=== PATIENT | female | born 1950 | race Caucasian/White ===

== ENCOUNTER 2020-07-22 18:15 | Inpatient (IN) ==
[2020-07-22] MEDS ORDERED: Isovue-370 500 ML BOTTLE IVP ONE (18:29)
[2020-07-22 18:56] LABS: Hematocrit 40.2 % (35.3-44.9); Hemoglobin 12.9 g/dL (11.5-15.4); Mean Corpuscular HGB Conc 32.1 g/dL (31.6-35.5); Mean Corpuscular Hemoglobin 29.1 pg (28.0-33.3); Mean Corpuscular Volume 90.7 fL (83.0-100.0); Mean Platelet Volume 10.3 fL (9.4-12.4); Platelet Count 252 K/mcL (140-400); Red Blood Count 4.43 M/mcL (3.82-4.97); Red Cell Distribution Width 12.3 % (11.5-14.5); White Blood Count 9.4 K/mcL (4.3-11.1)
[2020-07-22 19:02] LABS: INR 1.1; Prothrombin Time 12.9 Seconds (9.4-12.1)
[2020-07-22 19:05] LABS: Activated Partial Thrombo Time 32.4 Seconds (26.0-36.0)
[2020-07-22 19:12] LABS: BUN/Creatinine Ratio 18 (6-26); Blood Urea Nitrogen 27 mg/dL (8-23); Calcium 8.8 mg/dL (8.6-10.3); Carbon Dioxide 19 mEq/L (23-29); Chloride 107 mEq/L (98-107); Glucose 98 mg/dL (70-105); Osmolality,Calculated 289 (280-300); Potassium 3.8 mEq/L (3.5-5.1); Sodium 137 mEq/L (136-145); eGFR For African Americans 42 (> 60); eGFR For Non-African Americans 35 (> 60)
[2020-07-22 19:13] LABS: Troponin I < 0.03 ng/mL (< 0.04)
[2020-07-22] MEDS ORDERED: Aspirin 81 MG TAB.CHEW PO ONE (19:17)
[2020-07-22] MEDS ORDERED: 0.9 % Sodium Chloride 1,000 ML IVC ONE (19:17)
[2020-07-22 19:34] LABS: Bacteria,Urine Few per hpf (None-Few); Bilirubin,Urine Negative (Negative); Blood,Urine Trace (Negative); Clarity,Urine Clear (Clear); Color,Urine Colorless (Yellow); Glucose,Urine (UA) Normal (Normal); Ketones,Urine Negative (Negative); Leukocyte Esterase,Urine Large (Negative); Nitrite,Urine Negative (Negative); Protein,Urine Negative (Neg-Trace); Specific Gravity,Urine 1.013 (1.010-1.025); Squamous Epithelial Cell,Urine Few per hpf (None-Few); Transitional Epi Cells,Urine Few per hpf (None-Few); Urobilinogen,Urine Normal (Normal); WBC,Urine 50-100 per hpf (0-3)
[2020-07-22] MEDS ORDERED: *HR* Labetalol 20 MG/4 ML SYRINGE IVP ONE (20:49)
[2020-07-22] MEDS ORDERED: Naloxone 0.4 MG/ML INJ IVP PRN (22:35)
[2020-07-22] MEDS ORDERED: Ondansetron 4 MG/2 ML VIAL IVP PRN (22:35)
[2020-07-22] MEDS ORDERED: Perflutren Lipid Microsphere 1.3 ML in 0.9 % Sodium Chloride 8.7 ML IVP PRN (22:40)
[2020-07-22] MEDS: cefTRIAXone 1,000 MG in 0.9 % Sodium Chloride Mini Bag 100 ML IVPB SCH (23:52)
[2020-07-23] MEDS ORDERED: *HR* LORazepam 2 MG/ML VIAL IVP ONE (00:10)
[2020-07-23 01:25] LABS: Hemoglobin 12.8 g/dL (11.5-15.4); Mean Corpuscular Hemoglobin 28.8 pg (28.0-33.3); Mean Corpuscular Volume 89.9 fL (83.0-100.0); Mean Platelet Volume 10.6 fL (9.4-12.4); Platelet Count 263 K/mcL (140-400); Red Blood Count 4.45 M/mcL (3.82-4.97); Red Cell Distribution Width 12.4 % (11.5-14.5); White Blood Count 8.8 K/mcL (4.3-11.1)
[2020-07-23 01:33] LABS: INR 1.3; Prothrombin Time 14.4 Seconds (9.4-12.1)
[2020-07-23] MEDS: Acetaminophen 325 MG TABLET PO PRN ×2 (01:34→11:52)
[2020-07-23 01:36] LABS: Activated Partial Thrombo Time 42.9 Seconds (26.0-36.0)
[2020-07-23 01:42] LABS: Chol/HDL Ratio 2.7 (0-4.9); Magnesium 1.8 mg/dL (1.6-2.6); Potassium 4.3 mEq/L (3.5-5.1)
[2020-07-23 02:36] LABS: Estimated Average Glucose 123 mg/dl; Hemoglobin A1C 5.9 %
[2020-07-23] MEDS ORDERED: Morphine Sulfate 2 MG/ML SYRINGE IVP ONE (02:49)
[2020-07-23] MEDS ORDERED: Nitroglycerin 0.4 MG TAB.SUBL SL PRN (02:49)
[2020-07-23] MEDS: lisinopriL 5 MG TABLET PO SCH (08:14)
[2020-07-23] MEDS: cefTRIAXone 1,000 MG in 0.9 % Sodium Chloride Mini Bag 100 ML IVPB SCH (08:15)
[2020-07-23] MEDS: *HR* LORazepam 0.5 MG TABLET PO SCH ×3 (08:15→20:34)
[2020-07-23] MEDS: Aspirin Enteric Coated 81 MG Tablet PO SCH (08:15)
[2020-07-23] MEDS ORDERED: *HR* Heparin 5,000 UNIT/ML VIAL IVP ONE (08:43)
[2020-07-23] MEDS ORDERED: *HR* Heparin 5,000 UNIT/ML VIAL IVP PRN ×2 (08:43)
[2020-07-23] MEDS ORDERED: Heparin 25,000UNIT/250ML 1/2NS 25,000 UNIT/250 ML IV.SOLN IVC SCH (08:45)
[2020-07-23] MEDS ORDERED: Nitroglycerin 1 INCH/GM PACKET TP ONE (11:10)
[2020-07-23] MEDS: Thiamine (B-1) 100 MG TABLET PO SCH (11:53)
[2020-07-23 14:39] LABS: Folate 10.5 ng/mL (3.0-16.0)
[2020-07-23] MEDS ORDERED: Cyanocobalamin (B-12) 1,000 MCG TABLET PO SCH (16:00)
[2020-07-23] MEDS: Cyanocobalamin (B-12) 1,000 MCG/ML VIAL IM SCH (18:40)
[2020-07-24 01:05] LABS: Hematocrit 41.9 % (35.3-44.9); Hemoglobin 13.7 g/dL (11.5-15.4); Mean Corpuscular HGB Conc 32.7 g/dL (31.6-35.5); Mean Corpuscular Hemoglobin 29.5 pg (28.0-33.3); Mean Corpuscular Volume 90.3 fL (83.0-100.0); Mean Platelet Volume 10.5 fL (9.4-12.4); Platelet Count 275 K/mcL (140-400); Red Blood Count 4.64 M/mcL (3.82-4.97); Red Cell Distribution Width 12.5 % (11.5-14.5); White Blood Count 8.7 K/mcL (4.3-11.1)
[2020-07-24 01:20] LABS: Calcium 9.5 mg/dL (8.6-10.3); Potassium 4.1 mEq/L (3.5-5.1)
[2020-07-24 07:47] VITALS: BP 180/100
[2020-07-24] MEDS: Thiamine (B-1) 100 MG TABLET PO SCH (08:45)
[2020-07-24] MEDS: *HR* LORazepam 0.5 MG TABLET PO SCH (08:45)
[2020-07-24] MEDS: Aspirin Enteric Coated 81 MG Tablet PO SCH (08:46)
[2020-07-24] MEDS: lisinopriL 5 MG TABLET PO SCH (08:46)
[2020-07-24] MEDS: cefTRIAXone 1,000 MG in 0.9 % Sodium Chloride Mini Bag 100 ML IVPB SCH (08:48)
[2020-07-24] MEDS: Cyanocobalamin (B-12) 1,000 MCG/ML VIAL IM SCH (08:49)
== END 2020-07-24 13:15 | disposition left against medical advice (07) | DRG 689 ==
LOC: 2NENU 18:15 → EMEROOARM 18:15 → SUATTDRO 21:12 → 2NENU 21:52
PROVIDERS: ADMIT Student in an Organized Health Care Education/Training Program; ATTEND Family Medicine